=== PATIENT | male | born 1975 | race Caucasian/White ===

== ENCOUNTER 2016-10-20 19:41 | Inpatient (IN) | payer OTHER ==
[2016-10-20 20:40] VITALS: BMI 27.0
--- NOTE | 2016-10-20 20:48 | HP ---
COWS - Scale Resting Pulse: 0= [place] 80 or Below Sweatin=Flushed/Facial Moisture Restless Observation: 3= Extraneous Movement Pupil Size: 1= Pupils >than Normal Bone or Joint Aches: 1= Mild Discomfort Runny Nose/ Eye Tearin= Runny Nose/Eyes GI Upset > 30mins: 1= Stomach Cramp Tremor Observation: 1= Tremor [place], Not Seen Yawning Observation: 1= 1-2x During Session Anxiety or Irritability: 2=Irritable/Anxious Goose Flesh Skin: 0=Smooth Skin COWS Score: 14 CIWA Score - CIWA Score Nausea/Vomitin-Mild Nausea/No Vomiting Muscle Tremors: 3 Anxiety: 3 Agitation: 3 Paroxysmal Sweats: 1-Minimal Palms Moist Orientation: 1-Uncertain about Date Tacttile Disturbances: 0-None Auditory Disturbances: 2-Mild Harshness/Frighten Visual Disturbances: 2-Mild Sensitivity Headache: 0-None Present CIWA-Ar Total Score: 16 Admission ROS BHS - HPI Chief Complaint: WITHDRAWAL SYMPTOMS Allergies/Adverse Reactions: Allergies Allergy/AdvReac Type Severity Reaction Status Date / Time Seafood Allergy Severe Swelling Uncoded 10/20/16 20:40 History of Present Illness: 41 Y.O. MAN WITH AN EXTENSIVE HISTORY OF DRUG AND ALCOHOL DEPENDENCE IS SEEKING DETOX. THE HAS COMPLETED DETOX AND REHAB PREVIOUSLY AT ANOTHER FACILITY. HE STATES HE HAS HAD A PERIOD OF 4 YEARS OF SOBRIETY. Exam Limitations: No Limitations - Ebola screening Have you traveled outside of the country in the last 21 days: No (N) Have you had contact with anyone from an Ebola affected area: No Have you been sick,other than usual withdrawal symptoms: No Do you have a fever: No - Review of Systems Constitutional: Loss of Appetite, Changes in sleep, Unintentional Wgt. Loss EENT: reports: Blurred Vision, Double Vision, Tearing Respiratory: reports: No Symptoms reported Cardiac: reports: No Symptoms Reported GI: reports: Poor Appetite : reports: No Symptoms Reported Musculoskeletal: reports: No Symptoms Reported Integumentary: reports: No Symptoms Reported Neuro: reports: No Symptoms reported, Tremors Endocrine: reports: No Symptoms Reported Hematology: reports: No Symptoms Reported Psychiatric: reports: Anxious Other Systems: Reviewed and Negative Patient History - Patient Medical History Hx Anemia: No Hx Asthma: No Hx Chronic Obstructive Pulmonary Disease (COPD): No Hx Cancer: No Hx Cardiac Disorders: No Hx Congestive Heart Failure: No Hx Hypertension: No Hx Hypercholesterolemia: No Hx Pacemaker: No HX Cerebrovascular Accident: No Hx Seizures: No Hx Dementia: No Hx Diabetes: No Hx Gastrointestinal Disorders: No Hx Liver Disease: No Hx Genitourinary Disorders: No Hx Sexually Transmitted Disorders: No Hx Renal Disease (ESRD): No Hx Thyroid Disease: No Hx Human Immunodeficiency Virus (HIV): No Hx Hepatitis C: No Hx Depression: No Hx Suicide Attempt: No Hx Bipolar Disorder: No Hx Schizophrenia: No - Patient Surgical History Past Surgical History: No - PPD History Previous Implant?: No Results: NEEDS CXR PPD to be Administered?: No - Reproductive History Patient is a Female of Child Bearing Age (11 -55 yrs old): No - Smoking Cessation Smoking history: Current every day smoker Aproximately how many cigarettes per day: 10 Hx Chewing Tobacco Use: No Initiated information on smoking cessation: Yes 'Breaking Loose' booklet given: 10/20/16 - Substance & Tx. History Hx Alcohol Use: Yes Hx Substance Use: Yes Substance Use Type: Alcohol, Heroin Hx Substance Use Treatment: Yes (DETOX AND REHAB ) - Substances Abused Alcohol Route: Oral Frequency: Daily Amount used: beer- 2 six pack Age of first use: 17 Date of Last Use: 10/18/16 Heroin Route: Injection Frequency: Daily Amount used: 15 bags Age of first use: 24 Date of Last Use: 10/19/16 Family Disease History - Family Disease History Family History: Denies Admission Physical Exam BHS - Vital Signs Vital Signs: Vital Signs - 24 hr 10/20/16 20:27 Temperature 97.3 F L Pulse Rate 71 Respiratory 18 Rate Blood Pressure 111/74 - Physical General Appearance: Yes: No Apparent Distress, Tremorous, Irritable, Anxious HEENTM: Yes: Nasal Congestion Respiratory: Yes: Chest Non-Tender, Lungs Clear, Normal Breath Sounds, No Respiratory Distress, No Accessory Muscle Use Neck: Yes: No masses,lesions,Nodules, Trachea in good position Breast: Yes: Breast Exam Deferred Cardiology: Yes: Regular Rhythm, Regular Rate, S1, S2 Abdominal: Yes: Normal Bowel Sounds, Non Tender, Flat, Soft Genitourinary: Yes: Within Normal Limits Back: Yes: Normal Inspection Extremities: Yes: Normal Capillary Refill, Normal Inspection, Normal Range of Motion, Non-Tender, Tremors Neurological: Yes: Alert, Normal Mood/Affect, Normal Response Integumentary: Yes: Normal Color, Dry, Warm, Track Kimball Lymphatic: Yes: Within Normal Limits - Diagnostic (1) Alcohol dependence with uncomplicated withdrawal Current Visit: Yes Status: Chronic (2) Opioid dependence with withdrawal Current Visit: Yes Status: Chronic (3) History of treatment for tuberculosis Current Visit: Yes Status: Chronic Cleared for Admission [facility] - Detox or Rehab [facility] Level of Care: Medically Managed Detox Regimen/Protocol: Methadone/Librium [facility] Breath Alcohol Content Breath Alcohol Content: 0 Urine Drug Screen - Results Drug Screen Negative: No Urine Drug Screen Results: [place]-Cocaine, OPI-Opiates, MTD-Methadone, OXY- Oxycodone
[2016-10-20] MEDS ORDERED: MAGNESIUM HYDROX 2400MG/30ML ORAL SUSPENSION 30 ML CUP PO PRN (20:54)
[2016-10-20] MEDS ORDERED: ACETAMINOPHEN 325 MG TABLET (FP) PO PRN (20:54)
[2016-10-20] MEDS ORDERED: guaiFENesin/D-METHORPHAN HB 10 ML UNIT-DOSE CUPS PO PRN (20:54)
[2016-10-20] MEDS ORDERED: NICOTINE POLACRILEX 2 MG GUM BUC PRN (20:54)
[2016-10-20] MEDS ORDERED: MAG HYDROX/AL HYDROX/SIMETH 30 ML UNIT-DOSE CUP PO PRN (20:54)
[2016-10-20] MEDS ORDERED: MAGNESIUM CITRATE 300 ML BOTTLE PO PRN (20:54)
[2016-10-20] MEDS ORDERED: MENTHOL/PHENOL 1 EACH UD MM PRN (20:54)
[2016-10-20] MEDS ORDERED: chlordiazePOXIDE HCL 25 MG CAPSULE PO ONE (20:54)
[2016-10-20] MEDS ORDERED: LOPERAMIDE HCL 2 MG CAPSULE PO PRN (20:54)
[2016-10-20] MEDS ORDERED: P-EPHED 60MG/TRIPROLIDI 2.5MG TABLET PO PRN (20:54)
[2016-10-20] MEDS ORDERED: chlordiazePOXIDE HCL 25 MG CAPSULE PO PRN (20:54)
[2016-10-20] MEDS ORDERED: IBUPROFEN 400 MG TABLET (FP) PO PRN (20:54)
[2016-10-20] MEDS ORDERED: hydrOXYzine PAMOATE 50 MG CAPSULE (FP) PO PRN (20:54)
[2016-10-20] MEDS ORDERED: METHADONE HCL 10 MG TABLET (FOR DETOX USE ONLY) PO ONE ×2 (20:54→23:00)
[2016-10-20] MEDS ORDERED: METHADONE HCL 10 MG TABLET (FOR DETOX USE ONLY) ONE (23:13)
[2016-10-20] MEDS: THIAMINE HCL 100 MG TABLET (FP) PO SCH (23:14)
[2016-10-20] MEDS: chlordiazePOXIDE HCL 25 MG CAPSULE PO SCH (23:15)
[2016-10-21] MEDS: chlordiazePOXIDE HCL 25 MG CAPSULE PO SCH ×4 (06:20→22:42)
[2016-10-21] MEDS ORDERED: METHADONE HCL 10 MG TABLET (FOR DETOX USE ONLY) PO SCH (10:00)
[2016-10-21] MEDS: PRENATAL VITAMINS W/ FOLIC ACID TABLET (FP) PO SCH (10:25)
[2016-10-21] MEDS: NICOTINE 14 MG/24 HOURS TOPICAL PATCH TD SCH (10:26)
[2016-10-21 10:36] LABS: ALBUMIN 3.4 g/dl (3.4-5.0); ANION GAP 11 (8-16); CALCIUM 8.4 mg/dL (8.5-10.1); CO2 27 mmol/L (21-32); GLUCOSE,RANDOM 127 mg/dL (74-106)
[2016-10-21 10:37] LABS: MCH 29.5 pg (25.7-33.7); MCHC 33.9 g/dl (32.0-35.9); MEAN PLT VOLUME 7.8 fl (7.5-11.1); PLATELET COUNT 244 K/MM3 (134-434); RDW 13.2 % (11.9-15.9)
[2016-10-21 10:40] LABS: ALK PHOS 82 U/L (45-117); BILIRUBIN,TOTAL 0.4 mg/dL (0.2-1.0); SGOT/AST 11 U/L (15-37); SGPT/ALT 18 U/L (12-78); TOT PROT 6.1 g/dl (6.4-8.2)
--- NOTE | 2016-10-21 13:17 | PN ---
[facility] CIWA - CIWA Score Nausea/Vomitin-No Nausea/No Vomiting Muscle Tremors: 3 Anxiety: 4-Mod. Anxious/Guarded Agitation: 3 Paroxysmal Sweats: 3 Orientation: 0-Oriented Tacttile Disturbances: 0-None Auditory Disturbances: 0-None Visual Disturbances: 0-None Headache: 0-None Present CIWA-Ar Total Score: 13 BHS COWS - Scale Resting Pulse: 0= [place] 80 or Below Sweatin=Flushed/Facial Moisture Restless Observation: 1= Difficult to Sit Still Pupil Size: 0= Normal to Room Light Bone or Joint Aches: 2= Severe Diffuse Aches Runny Nose/ Eye Tearin= Runny Nose/Eyes GI Upset > 30mins: 2= Nausea/Diarrhea Tremor Observation of Outstretched Hands: 2= Slight Tremor Visible Yawning Observation: 1= 1-2x During Session Anxiety or Irritability: 2=Irritable/Anxious Goose Flesh Skin: 0=Smooth Skin COWS Score: 14 S Progress Note (SOAP) Subjective: anxiety,sweating,interrupted sleep,restless,nausea,muscle aches/spasm Objective: 10/21/16 13:16 Vital Signs - 8 hr 10/21/16 10/21/16 10/21/16 06:27 06:30 11:51 Temperature 96.9 F L 96.8 F L Pulse Rate 71 73 Respiratory 18 18 18 Rate Blood Pressure 120/73 147/92 Laboratory Tests 10/21/16 10/21/16 10/21/16 07:45 07:45 07:45 WBC 5.0 RBC 4.29 Hgb 12.6 Hct 37.3 MCV 87.0 MCHC 33.9 RDW 13.2 Plt Count 244 MPV 7.8 Sodium 142 Potassium 3.4 L Chloride 104 Carbon Dioxide 27 Anion Gap 11 BUN 12 Creatinine 1.0 Creat Clearance w eGFR > 60 Random Glucose 127 H Calcium 8.4 L Total Bilirubin 0.4 AST 11 L ALT 18 Alkaline Phosphatase 82 Total Protein 6.1 L Albumin 3.4 RPR Titer Nonreactive labs noted,k+ 3.4 Assessment: 10/21/16 13:16 withdrawal sx. Hypokalemia Plan: continue detox k-dur
[2016-10-21] MEDS: POTASSIUM CHLORIDE TABS 20 MEQ TABLET.ER (FP) PO SCH ×2 (13:42→22:41)
[2016-10-21] MEDS: THIAMINE HCL 100 MG TABLET (FP) PO SCH (22:41)
[2016-10-21] MEDS: diphenhydrAMINE HCL 50 MG CAPSULE PO PRN (22:42)
--- NOTE | 2016-10-22 00:47 | EKG ---
Test Reason : Blood Pressure : / mmHG Vent. Rate : 071 BPM Atrial Rate : 071 BPM P-R Int : 158 ms QRS Dur : 112 ms QT Int : 388 ms P-R-T Axes : 062 019 035 degrees QTc Int : 421 ms NORMAL SINUS RHYTHM NORMAL ECG NO PREVIOUS ECGS AVAILABLE Confirmed by JODY GRIGGS MD ([id number]) on 10/22/2016 12:47:11 AM Referred By: Confirmed By:JODY GRIGGS MD
[2016-10-22] MEDS: chlordiazePOXIDE HCL 25 MG CAPSULE PO SCH ×3 (05:26→17:41)
[2016-10-22] MEDS: POTASSIUM CHLORIDE TABS 20 MEQ TABLET.ER (FP) PO SCH ×2 (10:10→22:14)
[2016-10-22] MEDS: METHADONE HCL 5 MG TABLET (FOR DETOX USE ONLY) PO SCH (10:11)
[2016-10-22] MEDS: PRENATAL VITAMINS W/ FOLIC ACID TABLET (FP) PO SCH (10:11)
[2016-10-22] MEDS: NICOTINE 14 MG/24 HOURS TOPICAL PATCH TD SCH (10:11)
[2016-10-22 10:25] LABS: URINE APPEARANCE CLEAR; URINE BILIRUBIN NEGATIVE (NEGATIVE); URINE BLOOD NEGATIVE (NEGATIVE); URINE COLOR YELLOW; URINE GLUCOSE (UA) NEGATIVE (NEGATIVE); URINE KETONE NEGATIVE (NEGATIVE); URINE LEUK ESTERASE NEGATIVE (NEGATIVE); URINE NITRITE NEGATIVE (NEGATIVE); URINE PROTEIN NEGATIVE (NEGATIVE); URINE UROBILINOGEN NEGATIVE E.U./dl (0.2-1.0)
--- NOTE | 2016-10-22 11:54 | CONSULT ---
[facility] Psychiatric Consult - Data Date of interview: 10/22/16 Admission source: [facility] Identifying data: Mr Hooper is a 41 years old single male, father of a 23 years old son, unemployed, homeless seeking detox treatment for alcohol and heroin Substance Abuse History: - Smoking Cessation. Smoking history: Current every day smoker. Aproximately how many cigarettes per day: 10. Hx Chewing Tobacco Use: No. Initiated information on smoking cessation: Yes. 'Breaking Loose' booklet given: 10/20/16. - Substance & Tx. History. Hx Alcohol Use: Yes. Hx Substance Use: Yes. Substance Use Type: Alcohol, Heroin. Hx Substance Use Treatment: Yes (DETOX AND REHAB ). - Substances Abused. Alcohol. Route: Oral. Frequency: Daily. Amount used: beer- 2 six pack. Age of first use: 17. Date of Last Use: 10/18/16. Heroin. Route: Injection. Frequency: Daily. Amount used: 15 bags. Age of first use: 24. Date of Last Use: 10/19/16 Medical History: Unremarkable except prophylactic treatment for TB. Smokes 10 cigarettes daily Psychiatric History: Denies previous psychiatric contact. However, reports feeling depressed Mental Status Exam - Mental Status Exam Alert and Oriented to: Time, Place, Person Cognitive Function: Fair Patient Appearance: Well Groomed Mood: Depressed Affect: Blunted Patient Behavior: Cooperative Speech Pattern: Clear Voice Loudness: Normal Thought Process: Intact Thought Disorder: Not Present Hallucinations: Denies Suicidal Ideation: Denies Homicidal Ideation: Denies Insight/Judgement: Poor Sleep: Fair Appetite: Good Muscle strength/Tone: Normal Gait/Station: Normal Psychiatric Findings - Problem List ([place] 1, 2,3) (1) Substance induced mood disorder Current Visit: Yes Status: Acute (2) Alcohol dependence with uncomplicated withdrawal Current Visit: Yes Status: Chronic (3) Opioid dependence with withdrawal Current Visit: Yes Status: Chronic (4) Nicotine dependence Current Visit: Yes Status: Acute - Initial Treatment Plan Initial Treatment Plan: Continue inpatient detoxification
--- NOTE | 2016-10-22 16:25 | PN ---
S CIWA - CIWA Score Nausea/Vomitin Muscle Tremors: 3 Anxiety: 3 Agitation: 2 Paroxysmal Sweats: 3 Orientation: 0-Oriented Tacttile Disturbances: 2-Mild Itch/Numbness/Burn Auditory Disturbances: 1-Very Mild Visual Disturbances: 2-Mild Sensitivity Headache: 0-None Present CIWA-Ar Total Score: 18 BHS COWS - Scale Resting Pulse: 0= [place] 80 or Below Sweatin= Chills/Flushing Restless Observation: 1= Difficult to Sit Still Pupil Size: 0= Normal to Room Light Bone or Joint Aches: 2= Severe Diffuse Aches Runny Nose/ Eye Tearin= Nasal Congestion GI Upset > 30mins: 2= Nausea/Diarrhea Tremor Observation of Outstretched Hands: 2= Slight Tremor Visible Yawning Observation: 1= 1-2x During Session Anxiety or Irritability: 1=Feels Anxious/Irritable Goose Flesh Skin: 3=Piloerection COWS Score: 14 BHS Progress Note (SOAP) Subjective: Tremors, Lower Back Ache, Nausea, Sweating, Anxiety. Objective: PT. A & O X 3, OBSERVED AMBULATING ON UNIT. 10/22/16 16:24 Vital Signs Temperature 98.2 F 10/22/16 12:59 Pulse Rate 80 10/22/16 12:59 Respiratory Rate 18 10/22/16 12:59 Blood Pressure 125/81 10/22/16 12:59 O2 Sat by Pulse Oximetry (%) Laboratory Last Values WBC 5.0 K/mm3 (4.0-10.0) 10/21/16 07:45 RBC 4.29 M/mm3 (4.00-5.60) 10/21/16 07:45 Hgb 12.6 GM/dL (11.7-16.9) 10/21/16 07:45 Hct 37.3 % (35.4-49) 10/21/16 07:45 MCV 87.0 fl (80-96) 10/21/16 07:45 MCHC 33.9 g/dl (32.0-35.9) 10/21/16 07:45 RDW 13.2 % (11.9-15.9) 10/21/16 07:45 Plt Count 244 K/MM3 (134-434) 10/21/16 07:45 MPV 7.8 fl (7.5-11.1) 10/21/16 07:45 Sodium 142 mmol/L (136-145) 10/21/16 07:45 Potassium 3.4 mmol/L (3.5-5.1) L 10/21/16 07:45 Chloride 104 mmol/L (98-107) 10/21/16 07:45 Carbon Dioxide 27 mmol/L (21-32) 10/21/16 07:45 Anion Gap 11 (8-16) 10/21/16 07:45 BUN 12 mg/dL (7-18) 10/21/16 07:45 Creatinine 1.0 mg/dL (0.7-1.3) 10/21/16 07:45 Creat Clearance w eGFR > 60 (>60) 10/21/16 07:45 Random Glucose 127 mg/dL (74-106) H 10/21/16 07:45 Calcium 8.4 mg/dL (8.5-10.1) L 10/21/16 07:45 Total Bilirubin 0.4 mg/dL (0.2-1.0) 10/21/16 07:45 AST 11 U/L (15-37) L 10/21/16 07:45 ALT 18 U/L (12-78) 10/21/16 07:45 Alkaline Phosphatase 82 U/L (45-117) 10/21/16 07:45 Total Protein 6.1 g/dl (6.4-8.2) L 10/21/16 07:45 Albumin 3.4 g/dl (3.4-5.0) 10/21/16 07:45 Urine Color Yellow 10/22/16 07:00 Urine Appearance Clear 10/22/16 07:00 Urine pH 5.0 (5.0-8.0) 10/22/16 07:00 Ur Specific [place] 1.019 (1.001-1.035) 10/22/16 07:00 Urine Protein Negative (NEGATIVE) 10/22/16 07:00 Urine Glucose (UA) Negative (NEGATIVE) 10/22/16 07:00 Urine Ketones Negative (NEGATIVE) 10/22/16 07:00 Urine Blood Negative (NEGATIVE) 10/22/16 07:00 Urine Nitrite Negative (NEGATIVE) 10/22/16 07:00 Urine Bilirubin Negative (NEGATIVE) 10/22/16 07:00 Urine Urobilinogen Negative E.U./dl (0.2-1.0) 10/22/16 07:00 Ur Leukocyte Esterase Negative (NEGATIVE) 10/22/16 07:00 RPR Titer Nonreactive (NONREACTIVE) 10/21/16 07:45 LABS NOTED. 10/22/16 16:26 Assessment: 10/22/16 16:25 WITHDRAWAL SYMPTOMS. HYPOKALEMIA. Plan: CONTINUE DETOX.
[2016-10-22] MEDS: chlordiazePOXIDE 5 MG CAPSULE PO SCH (22:14)
[2016-10-22] MEDS: THIAMINE HCL 100 MG TABLET (FP) PO SCH (22:14)
[2016-10-22] MEDS: diphenhydrAMINE HCL 50 MG CAPSULE PO PRN (22:15)
[2016-10-23] MEDS: chlordiazePOXIDE 5 MG CAPSULE PO SCH ×3 (06:06→10:10)
[2016-10-23] MEDS: PRENATAL VITAMINS W/ FOLIC ACID TABLET (FP) PO SCH (10:09)
[2016-10-23] MEDS: POTASSIUM CHLORIDE TABS 20 MEQ TABLET.ER (FP) PO SCH (10:09)
[2016-10-23] MEDS: METHADONE HCL 5 MG TABLET (FOR DETOX USE ONLY) PO SCH (10:09)
[2016-10-23] MEDS: NICOTINE 14 MG/24 HOURS TOPICAL PATCH TD SCH (10:09)
--- NOTE | 2016-10-23 10:58 | PN ---
BHS Progress Note (SOAP) Subjective: ANXIETY,SWEAT/CHILLS,DECREASED APPETITE Objective: 10/23/16 10:58 Vital Signs Temperature 96.7 F L 10/23/16 06:41 Pulse Rate 68 10/23/16 06:41 Respiratory Rate 18 10/23/16 06:41 Blood Pressure 121/86 10/23/16 06:41 O2 Sat by Pulse Oximetry (%) Assessment: 10/23/16 10:58 WITHDRAWAL SX Plan: CONTINUE DETOX
[2016-10-23 11:07] VITALS: BP 111/78; PULSE 77; TEMP 97.7
--- NOTE | 2016-10-23 16:13 | DS ---
[facility] Detox Discharge Summary Admission Date: 10/20/16 Discharge Date: 10/23/16 - History Present History: Alcohol Dependence, Opioid Dependence Additional Comments: PT DECLINED TO CONTINUE WITH DETOX STATING PERSONAL REASONS. Pertinent Past History: DEPRESSION HX - Physical Exam Results Vital Signs: Vital Signs Temperature 97.7 F 10/23/16 11:06 Pulse Rate 77 10/23/16 11:06 Respiratory Rate 19 10/23/16 11:06 Blood Pressure 111/78 10/23/16 11:06 O2 Sat by Pulse Oximetry (%) Pertinent Admission Physical Exam Findings: WITHDRAWAL SX Laboratory Last Values WBC 5.0 K/mm3 (4.0-10.0) 10/21/16 07:45 RBC 4.29 M/mm3 (4.00-5.60) 10/21/16 07:45 Hgb 12.6 GM/dL (11.7-16.9) 10/21/16 07:45 Hct 37.3 % (35.4-49) 10/21/16 07:45 MCV 87.0 fl (80-96) 10/21/16 07:45 MCHC 33.9 g/dl (32.0-35.9) 10/21/16 07:45 RDW 13.2 % (11.9-15.9) 10/21/16 07:45 Plt Count 244 K/MM3 (134-434) 10/21/16 07:45 MPV 7.8 fl (7.5-11.1) 10/21/16 07:45 Sodium 142 mmol/L (136-145) 10/21/16 07:45 Potassium 3.4 mmol/L (3.5-5.1) L 10/21/16 07:45 Chloride 104 mmol/L (98-107) 10/21/16 07:45 Carbon Dioxide 27 mmol/L (21-32) 10/21/16 07:45 Anion Gap 11 (8-16) 10/21/16 07:45 BUN 12 mg/dL (7-18) 10/21/16 07:45 Creatinine 1.0 mg/dL (0.7-1.3) 10/21/16 07:45 Creat Clearance w eGFR > 60 (>60) 10/21/16 07:45 Random Glucose 127 mg/dL (74-106) H 10/21/16 07:45 Calcium 8.4 mg/dL (8.5-10.1) L 10/21/16 07:45 Total Bilirubin 0.4 mg/dL (0.2-1.0) 10/21/16 07:45 AST 11 U/L (15-37) L 10/21/16 07:45 ALT 18 U/L (12-78) 10/21/16 07:45 Alkaline Phosphatase 82 U/L (45-117) 10/21/16 07:45 Total Protein 6.1 g/dl (6.4-8.2) L 10/21/16 07:45 Albumin 3.4 g/dl (3.4-5.0) 10/21/16 07:45 Urine Color Yellow 10/22/16 07:00 Urine Appearance Clear 10/22/16 07:00 Urine pH 5.0 (5.0-8.0) 10/22/16 07:00 Ur Specific [place] 1.019 (1.001-1.035) 10/22/16 07:00 Urine Protein Negative (NEGATIVE) 10/22/16 07:00 Urine Glucose (UA) Negative (NEGATIVE) 10/22/16 07:00 Urine Ketones Negative (NEGATIVE) 10/22/16 07:00 Urine Blood Negative (NEGATIVE) 10/22/16 07:00 Urine Nitrite Negative (NEGATIVE) 10/22/16 07:00 Urine Bilirubin Negative (NEGATIVE) 10/22/16 07:00 Urine Urobilinogen Negative E.U./dl (0.2-1.0) 10/22/16 07:00 Ur Leukocyte Esterase Negative (NEGATIVE) 10/22/16 07:00 RPR Titer Nonreactive (NONREACTIVE) 10/21/16 07:45 - Treatment Hospital Course: Discharged Condition Good - Medication Discharge Medications: Ambulatory Orders NK [No Known Home Medication] 10/20/16 - Diagnosis (1) Nicotine dependence Status: Acute Qualifiers: Nicotine product type: cigarettes Substance use status: in withdrawal Qualified Code(s): F17.213 - Nicotine dependence, cigarettes, with withdrawal (2) Substance induced mood disorder Status: Acute (3) Alcohol dependence with uncomplicated withdrawal Status: Acute (4) History of treatment for tuberculosis Status: Chronic (5) Opioid dependence with withdrawal Status: Acute - AMA Did Patient Leave Against Medical Advice: Yes (AMA)
[2016-10-23] MEDS ORDERED: chlordiazePOXIDE HCL 10 MG CAPSULE PO SCH (23:00)
[2016-10-24] MEDS ORDERED: METHADONE HCL 10 MG TABLET (FOR DETOX USE ONLY) PO SCH (10:00)
[2016-10-25] MEDS ORDERED: METHADONE HCL 5 MG TABLET (FOR DETOX USE ONLY) PO SCH (06:00)
== END 2016-10-23 11:45 | disposition left against medical advice (07) | DRG 770 ==
LOC: YASAS 19:41 → Y3N 20:36
PROVIDERS: ADMIT Internal Medicine; ATTEND Internal Medicine
PROC: HZ2ZZZZ Detoxification Services for Substance Abuse Treatment (ICD-10-PCS; principal; 2016-10-20)
DX: F11.23 Opioid dependence with withdrawal (principal); F10.230 Alcohol dependence with withdrawal, uncomplicated; F17.210 Nicotine dependence, cigarettes, uncomplicated; F19.24 Other psychoactive substance dependence with psychoactive substance-induced mood disorder; E87.6 Hypokalemia; Z86.11 Personal history of tuberculosis; Z59.0 Homelessness
CPT/HCPCS: 36415; 80053; 81003; 85027; 86593; 93005; 93010

== ENCOUNTER 2016-12-08 12:20 | Inpatient (IN) | payer OTHER ==
[2016-12-08 14:53] VITALS: BMI 30.8
--- NOTE | 2016-12-08 16:22 | HP ---
COWS - Scale Resting Pulse: 0= [place] 80 or Below Sweatin=Flushed/Facial Moisture Restless Observation: 3= Extraneous Movement Pupil Size: 2= Moderately Dilated Bone or Joint Aches: 1= Mild Discomfort Runny Nose/ Eye Tearin= Runny Nose/Eyes GI Upset > 30mins: 2= Nausea/Diarrhea Tremor Observation: 2= Slight Tremor Visible Yawning Observation: 1= 1-2x During Session Anxiety or Irritability: 2=Irritable/Anxious Goose Flesh Skin: 0=Smooth Skin COWS Score: 17 Admission ROS S - HPI Chief Complaint: Withdrawal sx. Allergies/Adverse Reactions: Allergies Allergy/AdvReac Type Severity Reaction Status Date / Time fish derived Allergy Severe Swelling Verified 12/08/16 15:52 shellfish derived Allergy Severe Swelling Verified 12/08/16 15:52 No Known Drug Allergies Allergy Verified 12/08/16 15:52 Seafood Allergy Severe Swelling Uncoded 12/08/16 15:52 History of Present Illness: 41 y/o man with a long hx. of drug dependence is admitted for detox. Pt. has been in previous detox,he reports 2 yrs. drug free. Exam Limitations: No Limitations - Ebola screening Have you traveled outside of the country in the last 21 days: No Have you had contact with anyone from an Ebola affected area: No Have you been sick,other than usual withdrawal symptoms: No Do you have a fever: No - Review of Systems Constitutional: Diaphoresis EENT: reports: Nose Congestion Respiratory: reports: No Symptoms reported Cardiac: reports: No Symptoms Reported GI: reports: Nausea, Abdominal cramping : reports: No Symptoms Reported Musculoskeletal: reports: Back Pain Integumentary: reports: Sweating Neuro: reports: Tremors Endocrine: reports: No Symptoms Reported Hematology: reports: No Symptoms Reported Psychiatric: reports: No Sypmtoms Reported Other Systems: Reviewed and Negative Patient History - Patient Medical History Hx Anemia: No Hx Asthma: Yes (Albuterol) Hx Chronic Obstructive Pulmonary Disease (COPD): No Hx Cancer: No Hx Cardiac Disorders: No Hx Congestive Heart Failure: No Hx Hypertension: No Hx Hypercholesterolemia: No Hx Pacemaker: No HX Cerebrovascular Accident: No Hx Seizures: No Hx Dementia: No Hx Diabetes: No Hx Gastrointestinal Disorders: No Hx Liver Disease: No Hx Genitourinary Disorders: No Hx Sexually Transmitted Disorders: No Hx Renal Disease (ESRD): No Hx Thyroid Disease: No Hx Human Immunodeficiency Virus (HIV): No Hx Hepatitis C: No Hx Depression: Yes Hx Suicide Attempt: No Hx Bipolar Disorder: No Hx Schizophrenia: No - Patient Surgical History Past Surgical History: No Hx Neurologic Surgery: No Hx Cataract Extraction: No Hx Cardiac Surgery: No Hx Lung Surgery: No Hx Breast Surgery: No Hx Breast Biopsy: No Hx Abdominal Surgery: No Hx Appendectomy: No Hx Cholecystectomy: No Hx Genitourinary Surgery: No Hx Section: No Hx Orthopedic Surgery: No Anesthesia Reaction: No - PPD History Previous Implant?: Yes Documented Results: Positive w/proof Results: NEEDS CXR PPD to be Administered?: No - Smoking Cessation Smoking history: Current every day smoker Have you smoked in the past 12 months: Yes Aproximately how many cigarettes per day: 10 Hx Chewing Tobacco Use: No Initiated information on smoking cessation: Yes 'Breaking Loose' booklet given: 12/08/16 - Substance & Tx. History Hx Alcohol Use: No Hx Substance Use: Yes Substance Use Type: Heroin Hx Substance Use Treatment: Yes (Detox & Rehab) - Substances Abused Heroin Route: Injection Frequency: Daily Amount used: 10 bags Age of first use: 29 Date of Last Use: 12/07/16 Family Disease History - Family Disease History Family Disease History: Heart Disease: Mother (HTN) Admission Physical Exam BHS - Vital Signs Vital Signs: Vital Signs - 24 hr 12/08/16 14:46 Temperature 96.8 F L Pulse Rate 66 Respiratory 18 Rate Blood Pressure 125/80 - Physical General Appearance: Yes: Irritable, Sweating, Anxious HEENTM: Yes: Nasal Congestion, Rhinorrhea Respiratory: Yes: Chest Non-Tender, Lungs Clear, Normal Breath Sounds Neck: Yes: Supple Breast: Yes: Breast Exam Deferred Cardiology: Yes: Regular Rhythm, Regular Rate, S1, S2 Abdominal: Yes: Normal Bowel Sounds, Non Tender, Soft Genitourinary: Yes: Within Normal Limits Back: Yes: Within Normal Limits Musculoskeletal: Yes: Within Normal Limits Extremities: Yes: Tremors Neurological: Yes: Fully Oriented, Alert Integumentary: Yes: Track Kimball Lymphatic: Yes: Within Normal Limits - Diagnostic (1) Nicotine dependence Current Visit: Yes Status: Acute Qualifiers: Nicotine product type: cigarettes Substance use status: in withdrawal Qualified Code(s): F17.213 - Nicotine dependence, cigarettes, with withdrawal (2) Opioid dependence with withdrawal Current Visit: Yes Status: Acute Cleared for Admission [facility] - Detox or Rehab [facility] Level of Care: Medically Managed Detox Regimen/Protocol: Methadone [facility] Breath Alcohol Content Breath Alcohol Content: 0 Urine Drug Screen - Results Drug Screen Negative: No Urine Drug Screen Results: THC-Marijuana, OPI-Opiates, MTD-Methadone
[2016-12-08] MEDS ORDERED: MENTHOL/PHENOL 1 EACH UD MM PRN (16:27)
[2016-12-08] MEDS ORDERED: NICOTINE POLACRILEX 2 MG GUM BC PRN (16:27)
[2016-12-08] MEDS ORDERED: LOPERAMIDE HCL 2 MG CAPSULE PO PRN (16:27)
[2016-12-08] MEDS ORDERED: MAGNESIUM CITRATE 300 ML BOTTLE PO PRN (16:27)
[2016-12-08] MEDS ORDERED: ACETAMINOPHEN 325 MG TABLET (FP) PO PRN (16:27)
[2016-12-08] MEDS ORDERED: MAG HYDROX/AL HYDROX/SIMETH 30 ML UNIT-DOSE CUP PO PRN (16:27)
[2016-12-08] MEDS ORDERED: diphenhydrAMINE HCL 50 MG CAPSULE PO PRN (16:27)
[2016-12-08] MEDS ORDERED: METHADONE HCL 10 MG TABLET (FOR DETOX USE ONLY) PO ONE ×2 (16:27→23:00)
[2016-12-08] MEDS ORDERED: MAGNESIUM HYDROX 2400MG/30ML ORAL SUSPENSION 30 ML CUP PO PRN (16:27)
[2016-12-08] MEDS ORDERED: P-EPHED 60MG/TRIPROLIDI 2.5MG TABLET PO PRN (16:27)
[2016-12-08] MEDS ORDERED: IBUPROFEN 400 MG TABLET (FP) PO PRN (16:27)
[2016-12-08] MEDS ORDERED: guaiFENesin/D-METHORPHAN HB 10 ML UNIT-DOSE CUPS PO PRN (16:27)
[2016-12-08] MEDS ORDERED: hydrOXYzine PAMOATE 50 MG CAPSULE (FP) PO PRN (16:27)
[2016-12-08] MEDS ORDERED: ALBUTEROL SO4 6.7 GM HFA INHALER IH PRN (17:00)
[2016-12-08] MEDS: diazePAM 5 MG TABLET PO PRN (19:30)
[2016-12-08] MEDS: NICOTINE 21 MG/24 HOURS TOPICAL PATCH TD SCH (19:31)
[2016-12-08] MEDS ORDERED: THIAMINE HCL 100 MG TABLET (FP) PO SCH (22:00)
[2016-12-09] MEDS: diazePAM 5 MG TABLET PO PRN ×2 (05:42→10:28)
[2016-12-09 09:17] LABS: MCH 28.8 pg (25.7-33.7); MCHC 33.6 g/dl (32.0-35.9); MEAN CELL VOLUME 85.6 fl (80-96); MEAN PLT VOLUME 7.6 fl (7.5-11.1); PLATELET COUNT 242 K/MM3 (134-434); WHITE BLOOD COUNT 5.7 K/mm3 (4.0-10.0)
[2016-12-09 09:30] LABS: ALBUMIN 3.6 g/dl (3.4-5.0); ANION GAP 11 (8-16); CALCIUM 8.9 mg/dL (8.5-10.1); CO2 29 mmol/L (21-32); COCKROFT - GAULT 131.02; CREATININE 0.9 mg/dL (0.7-1.3); GLUCOSE,RANDOM 82 mg/dL (74-106); SGOT/AST 15 U/L (15-37); SGPT/ALT 33 U/L (12-78)
[2016-12-09 09:32] LABS: ALK PHOS 90 U/L (45-117); BILIRUBIN,TOTAL 0.9 mg/dL (0.2-1.0)
[2016-12-09] MEDS ORDERED: PRENATAL VITAMINS W/ FOLIC ACID TABLET (FP) PO SCH (10:00)
[2016-12-09] MEDS ORDERED: METHADONE HCL 10 MG TABLET (FOR DETOX USE ONLY) PO ONE (10:00)
[2016-12-09] MEDS: NICOTINE 21 MG/24 HOURS TOPICAL PATCH TD SCH (10:28)
--- NOTE | 2016-12-09 12:21 | PN ---
BHS COWS - Scale Resting Pulse: 0= [place] 80 or Below Sweatin=Flushed/Facial Moisture Restless Observation: 1= Difficult to Sit Still Pupil Size: 0= Normal to Room Light Bone or Joint Aches: 1= Mild Discomfort Runny Nose/ Eye Tearin= Runny Nose/Eyes GI Upset > 30mins: 2= Nausea/Diarrhea Tremor Observation of Outstretched Hands: 2= Slight Tremor Visible Yawning Observation: 1= 1-2x During Session Anxiety or Irritability: 2=Irritable/Anxious Goose Flesh Skin: 0=Smooth Skin COWS Score: 13 BHS Progress Note (SOAP) Subjective: Anxiety,sweating,interrupted sleep,restless,tremors. Objective: 12/09/16 12:20 Vital Signs - 8 hr 12/09/16 12/09/16 06:45 09:31 Temperature 97.8 F 97.9 F Pulse Rate 71 80 Respiratory 18 20 Rate Blood Pressure 132/91 129/90 Laboratory Tests 12/09/16 12/09/16 12/09/16 07:30 07:30 07:30 WBC 5.7 RBC 4.71 Hgb 13.6 Hct 40.4 MCV 85.6 MCHC 33.6 RDW 13.0 Plt Count 242 MPV 7.6 Sodium 139 Potassium 3.8 Chloride 99 Carbon Dioxide 29 Anion Gap 11 BUN 6 L D Creatinine 0.9 Creat Clearance w eGFR > 60 Random Glucose 82 D Calcium 8.9 Total Bilirubin 0.9 D AST 15 D ALT 33 D Alkaline Phosphatase 90 Total Protein 7.0 Albumin 3.6 RPR Titer Nonreactive labs noted Assessment: 12/09/16 12:20 Withdrawal sx. Plan: Continue detox
[2016-12-09 13:55] VITALS: BP 135/89; PULSE 86; TEMP 97
[2016-12-09] MEDS ORDERED: cloNIDine HCL 0.1 MG TABLET PO SCH (14:00)
--- NOTE | 2016-12-09 17:17 | EKG ---
Test Reason : Blood Pressure : / mmHG Vent. Rate : 062 BPM Atrial Rate : 062 BPM P-R Int : 160 ms QRS Dur : 094 ms QT Int : 426 ms P-R-T Axes : 033 029 047 degrees QTc Int : 432 ms NORMAL SINUS RHYTHM NORMAL ECG WHEN COMPARED WITH ECG OF 20-OCT-2016 22:02, NO SIGNIFICANT CHANGE WAS FOUND Confirmed by BLANCA PIERSON MD ([id number]) on 12/09/2016 5:17:17 PM Referred By: Confirmed By:BLANCA PIERSON MD
[2016-12-10] MEDS ORDERED: METHADONE HCL 5 MG TABLET (FOR DETOX USE ONLY) PO ONE (10:00)
[2016-12-11] MEDS ORDERED: METHADONE HCL 5 MG TABLET (FOR DETOX USE ONLY) PO ONE (10:00)
[2016-12-12] MEDS ORDERED: METHADONE HCL 10 MG TABLET (FOR DETOX USE ONLY) PO ONE (10:00)
[2016-12-13] MEDS ORDERED: METHADONE HCL 5 MG TABLET (FOR DETOX USE ONLY) PO ONE (06:00)
--- NOTE | 2016-12-13 12:12 | DS ---
[facility] Detox Discharge Summary Admission Date: 12/08/16 Discharge Date: 12/09/16 - History Present History: Alcohol Dependence, Opioid Dependence Pertinent Past History: PPD+ - Physical Exam Results Vital Signs: Vital Signs Temperature 97.0 F L 12/09/16 13:54 Pulse Rate 86 12/09/16 13:54 Respiratory Rate 18 12/09/16 13:54 Blood Pressure 135/89 12/09/16 13:54 O2 Sat by Pulse Oximetry (%) Pertinent Admission Physical Exam Findings: Withdrawal sx. Laboratory Last Values WBC 5.7 K/mm3 (4.0-10.0) 12/09/16 07:30 RBC 4.71 M/mm3 (4.00-5.60) 12/09/16 07:30 Hgb 13.6 GM/dL (11.7-16.9) 12/09/16 07:30 Hct 40.4 % (35.4-49) 12/09/16 07:30 MCV 85.6 fl (80-96) 12/09/16 07:30 MCHC 33.6 g/dl (32.0-35.9) 12/09/16 07:30 RDW 13.0 % (11.9-15.9) 12/09/16 07:30 Plt Count 242 K/MM3 (134-434) 12/09/16 07:30 MPV 7.6 fl (7.5-11.1) 12/09/16 07:30 Sodium 139 mmol/L (136-145) 12/09/16 07:30 Potassium 3.8 mmol/L (3.5-5.1) 12/09/16 07:30 Chloride 99 mmol/L (98-107) 12/09/16 07:30 Carbon Dioxide 29 mmol/L (21-32) 12/09/16 07:30 Anion Gap 11 (8-16) 12/09/16 07:30 BUN 6 mg/dL (7-18) L D 12/09/16 07:30 Creatinine 0.9 mg/dL (0.7-1.3) 12/09/16 07:30 Creat Clearance w eGFR > 60 (>60) 12/09/16 07:30 Random Glucose 82 mg/dL (74-106) D 12/09/16 07:30 Calcium 8.9 mg/dL (8.5-10.1) 12/09/16 07:30 Total Bilirubin 0.9 mg/dL (0.2-1.0) D 12/09/16 07:30 AST 15 U/L (15-37) D 12/09/16 07:30 ALT 33 U/L (12-78) D 12/09/16 07:30 Alkaline Phosphatase 90 U/L (45-117) 12/09/16 07:30 Total Protein 7.0 g/dl (6.4-8.2) 12/09/16 07:30 Albumin 3.6 g/dl (3.4-5.0) 12/09/16 07:30 RPR Titer Nonreactive (NONREACTIVE) 12/09/16 07:30 labs noted - Treatment Patient has Accepted a Rehab Referral to: [facility] - Medication Discharge Medications: Ambulatory Orders NK [No Known Home Medication] 10/20/16 - Diagnosis (1) Nicotine dependence Status: Acute Qualifiers: Nicotine product type: cigarettes Substance use status: in withdrawal Qualified Code(s): F17.213 - Nicotine dependence, cigarettes, with withdrawal (2) Opioid dependence with withdrawal Status: Acute - AMA Did Patient Leave Against Medical Advice: Yes
== END 2016-12-09 14:00 | disposition left against medical advice (07) | DRG 770 ==
LOC: YASAS 12:20 → Y3N 15:53
PROVIDERS: ADMIT Internal Medicine; ATTEND Internal Medicine
DX: F11.23 Opioid dependence with withdrawal (principal); F17.213 Nicotine dependence, cigarettes, with withdrawal; Z59.0 Homelessness
CPT/HCPCS: 36415; 80053; 85027; 86593; 93005; 93010

== ENCOUNTER 2017-06-22 13:26 | Inpatient (IN) | payer OTHER ==
[2017-06-22 14:18] VITALS: BMI 31.3
--- NOTE | 2017-06-22 14:34 | HP ---
COWS - Scale Resting Pulse: 0= [place] 80 or Below Sweatin= Chills/Flushing Restless Observation: 0= Sits Still Pupil Size: 0= Normal to Room Light Bone or Joint Aches: 1= Mild Discomfort Runny Nose/ Eye Tearin= Nasal Congestion GI Upset > 30mins: 1= Stomach Cramp Tremor Observation: 2= Slight Tremor Visible Yawning Observation: 1= 1-2x During Session Anxiety or Irritability: 1=Feels Anxious/Irritable Goose Flesh Skin: 0=Smooth Skin COWS Score: 8 Admission ROS BHS - HPI Chief Complaint: I'm here for me this time, I have hope I can get clean Allergies/Adverse Reactions: Allergies Allergy/AdvReac Type Severity Reaction Status Date / Time fish derived Allergy Severe Swelling Verified 12/08/16 15:52 shellfish derived Allergy Severe Swelling Verified 12/08/16 15:52 No Known Drug Allergies Allergy Verified 12/08/16 15:52 Seafood Allergy Severe Swelling Uncoded 12/08/16 15:52 History of Present Illness: 42 yo gentleman here for detox from opiates - one of several admissions. No seizures, states never been on methadone program or suboxone. Exam Limitations: Clinical Condition - Ebola screening Have you traveled outside of the country in the last 21 days: No Have you had contact with anyone from an Ebola affected area: No Have you been sick,other than usual withdrawal symptoms: No Do you have a fever: No - Review of Systems Constitutional: Loss of Appetite, Malaise, Changes in sleep, Weakness EENT: reports: Nose Congestion Respiratory: reports: No Symptoms reported Cardiac: reports: No Symptoms Reported GI: reports: Nausea, Poor Appetite, Indigestion : reports: Dysuria Musculoskeletal: reports: Back Pain, Muscle Pain Integumentary: reports: No Symptoms Reported Neuro: reports: Headache Endocrine: reports: No Symptoms Reported Hematology: reports: No Symptoms Reported Psychiatric: reports: Judgement Intact, Mood/Affect Appropiate, Anxious Other Systems: Reviewed and Negative Patient History - Patient Medical History Hx Anemia: No Hx Asthma: No Hx Chronic Obstructive Pulmonary Disease (COPD): No Hx Cancer: No Hx Cardiac Disorders: No Hx Congestive Heart Failure: No Hx Hypertension: No Hx Hypercholesterolemia: No Hx Pacemaker: No HX Cerebrovascular Accident: No Hx Seizures: No Hx Dementia: No Hx Diabetes: No Hx Gastrointestinal Disorders: No Hx Liver Disease: No Hx Genitourinary Disorders: No Hx Sexually Transmitted Disorders: No Hx Renal Disease (ESRD): No Hx Thyroid Disease: No Hx Human Immunodeficiency Virus (HIV): No Hx Hepatitis C: No Hx Depression: Yes (never hospitalized) Hx Suicide Attempt: No Hx Bipolar Disorder: No Hx Schizophrenia: No - Patient Surgical History Past Surgical History: No Hx Neurologic Surgery: No Hx Cataract Extraction: No Hx Cardiac Surgery: No Hx Lung Surgery: No Hx Breast Surgery: No Hx Breast Biopsy: No Hx Abdominal Surgery: No Hx Appendectomy: No Hx Cholecystectomy: No Hx Genitourinary Surgery: No Hx Section: No Hx Orthopedic Surgery: No Anesthesia Reaction: No - PPD History Previous Implant?: Yes Documented Results: Positive w/o proof (took medication x 9 months) Results: NEEDS CXR PPD to be Administered?: No - Reproductive History Patient is a Female of Child Bearing Age (11 -55 yrs old): No (male) - Smoking Cessation Smoking history: Current every day smoker Have you smoked in the past 12 months: Yes Aproximately how many cigarettes per day: 10 Hx Chewing Tobacco Use: No Initiated information on smoking cessation: Yes 'Breaking Loose' booklet given: 06/22/17 (give on floor) - Substance & Tx. History Hx Alcohol Use: No Hx Substance Use: Yes Substance Use Type: Heroin, Marijuana, Opiates, Tranquilizers Hx Substance Use Treatment: Yes (detox, rehab) - Substances Abused percocet Route: Oral Frequency: 1-2 times per week Amount used: three 10mg pills Age of first use: 35 Date of Last Use: 06/21/17 Heroin Route: Injection Frequency: Daily Amount used: 15 bags Age of first use: 18 Date of Last Use: 06/22/17 Marijuana/Hashish Route: Smoking Frequency: 1-2 times per week Amount used: 1 blunt Age of first use: 15 Date of Last Use: 06/19/17 Alprazolam (Xanax) Route: Oral Frequency: Daily Amount used: two 4mg sticks Age of first use: 36 Date of Last Use: 06/17/17 Family Disease History - Family Disease History Family Disease History: Other: Father (living), Mother (living), Brother (one - living - healthy), Son (healthy) Admission Physical Exam BHS - Vital Signs Vital Signs: Vital Signs - 24 hr 06/22/17 14:15 Temperature 97.3 F L Pulse Rate 76 Respiratory 20 Rate Blood Pressure 126/84 - Physical General Appearance: Yes: Nourished, Appropriately Dressed, Moderate Distress, Anxious HEENTM: Yes: Hearing grossly Normal, Normocephalic, Normal Voice, Pharynx Normal Respiratory: Yes: Normal Breath Sounds, No Respiratory Distress Neck: Yes: No masses,lesions,Nodules, Supple Breast: Yes: Breast Exam Deferred Cardiology: Yes: Regular Rhythm, Regular Rate Abdominal: Yes: Soft Genitourinary: Yes: Dysuria Back: Yes: Normal Inspection Musculoskeletal: Yes: full range of Motion, Gait Steady Extremities: Yes: Normal Inspection, Non-Tender Neurological: Yes: Fully Oriented, Alert, Normal Mood/Affect, Normal Response Integumentary: Yes: Normal Color, Warm, Track Kimball (both hands - mild swelling but no palpable abscess or redness) Lymphatic: Yes: Within Normal Limits - Diagnostic (1) Opioid dependence with withdrawal Current Visit: Yes Status: Chronic (2) PPD positive, treated Current Visit: Yes Status: Chronic (3) Nicotine dependence Current Visit: Yes Status: Chronic Qualifiers: Nicotine product type: cigarettes Substance use status: in withdrawal Qualified Code(s): F17.213 - Nicotine dependence, cigarettes, with withdrawal; F17.213 - Nicotine dependence, cigarettes, with withdrawal Cleared for Admission [facility] - Detox or Rehab [facility] Level of Care: Medically Managed Detox Regimen/Protocol: Methadone [facility] Breath Alcohol Content Breath Alcohol Content: 0 Urine Drug Screen - Results Drug Screen Negative: No Urine Drug Screen Results: THC-Marijuana, [place]-Cocaine, OPI-Opiates, BZO- Benzodiazepines, OXY-Oxycodone
[2017-06-22] MEDS ORDERED: MAGNESIUM CITRATE 300 ML BOTTLE PO PRN (14:43)
[2017-06-22] MEDS ORDERED: IBUPROFEN 400 MG TABLET (FP) PO PRN (14:43)
[2017-06-22] MEDS ORDERED: MENTHOL/PHENOL 1 EACH UD MM PRN (14:43)
[2017-06-22] MEDS ORDERED: MAG HYDROX/AL HYDROX/SIMETH 30 ML UNIT-DOSE CUP PO PRN (14:43)
[2017-06-22] MEDS ORDERED: diazePAM 5 MG TABLET PO ONE (14:43)
[2017-06-22] MEDS ORDERED: P-EPHED 60MG/TRIPROLIDI 2.5MG TABLET PO PRN (14:43)
[2017-06-22] MEDS ORDERED: MAGNESIUM HYDROX 2400MG/30ML ORAL SUSPENSION 30 ML CUP PO PRN (14:43)
[2017-06-22] MEDS ORDERED: guaiFENesin/D-METHORPHAN HB 10 ML UNIT-DOSE CUPS PO PRN (14:43)
[2017-06-22] MEDS ORDERED: diphenhydrAMINE HCL 50 MG CAPSULE PO PRN (14:43)
[2017-06-22] MEDS ORDERED: ACETAMINOPHEN 325 MG TABLET (FP) PO PRN (14:43)
[2017-06-22] MEDS ORDERED: diazePAM 5 MG TABLET PO PRN (14:43)
[2017-06-22] MEDS ORDERED: LOPERAMIDE HCL 2 MG CAPSULE PO PRN (14:43)
[2017-06-22] MEDS ORDERED: METHADONE HCL 10 MG TABLET (FOR DETOX USE ONLY) PO ONE ×2 (16:45→23:00)
[2017-06-22] MEDS ORDERED: METHADONE HCL 10 MG TABLET (FOR DETOX USE ONLY) ONE (18:45)
[2017-06-22] MEDS: NICOTINE 21 MG/24 HOURS TOPICAL PATCH TD SCH (18:49)
[2017-06-22] MEDS ORDERED: THIAMINE HCL 100 MG TABLET (FP) PO SCH (22:00)
[2017-06-22] MEDS: diazePAM 5 MG TABLET PO SCH (22:18)
[2017-06-22 23:03] LABS: URINE APPEARANCE SLCLOUDY; URINE BILIRUBIN NEGATIVE (NEGATIVE); URINE BLOOD NEGATIVE (NEGATIVE); URINE COLOR DKYELLOW; URINE GLUCOSE (UA) NEGATIVE (NEGATIVE); URINE KETONE NEGATIVE (NEGATIVE); URINE NITRITE NEGATIVE (NEGATIVE); URINE PROTEIN NEGATIVE (NEGATIVE)
[2017-06-23] MEDS: diazePAM 5 MG TABLET PO SCH ×2 (06:50→14:51)
[2017-06-23 09:49] LABS: MCH 28.6 pg (25.7-33.7); MCHC 33.3 g/dl (32.0-35.9); MEAN CELL VOLUME 85.9 fl (80-96); MEAN PLT VOLUME 7.5 fl (7.5-11.1); PLATELET COUNT 244 K/MM3 (134-434); RDW 14.2 % (11.9-15.9); WHITE BLOOD COUNT 5.4 K/mm3 (4.0-10.0)
[2017-06-23 10:00] LABS: ALBUMIN 3.4 g/dl (3.4-5.0); ALK PHOS 74 U/L (45-117); BILIRUBIN,TOTAL 1.2 mg/dL (0.2-1.0); CALCIUM 8.6 mg/dL (8.5-10.1); CO2 26 mmol/L (21-32); CREATININE 0.9 mg/dL (0.7-1.3); GLUCOSE,RANDOM 96 mg/dL (74-106); SGOT/AST 21 U/L (15-37); SGPT/ALT 45 U/L (12-78); TOT PROT 6.7 g/dl (6.4-8.2)
[2017-06-23] MEDS ORDERED: PRENATAL VITAMINS W/ FOLIC ACID TABLET (FP) PO SCH (10:00)
[2017-06-23] MEDS ORDERED: METHADONE HCL 10 MG TABLET (FOR DETOX USE ONLY) PO SCH (10:00)
[2017-06-23 10:02] LABS: ANION GAP 9 (8-16)
[2017-06-23] MEDS: NICOTINE 21 MG/24 HOURS TOPICAL PATCH TD SCH (10:16)
--- NOTE | 2017-06-23 11:01 | EKG ---
Test Reason : Blood Pressure : / mmHG Vent. Rate : 066 BPM Atrial Rate : 066 BPM P-R Int : 154 ms QRS Dur : 096 ms QT Int : 408 ms P-R-T Axes : 049 029 029 degrees QTc Int : 427 ms NORMAL SINUS RHYTHM NORMAL ECG WHEN COMPARED WITH ECG OF 08-DEC-2016 16:22, NO SIGNIFICANT CHANGE WAS FOUND Confirmed by ANGIE JAIMES MD ([id number]) on 06/23/2017 11:01:40 AM Referred By: Confirmed By:ANGIE JAIMES MD
[2017-06-23] MEDS ORDERED: FLU VACCINE QUAD 60 MCG/0.5 ML (MDV 17-18) IM ONE (12:00)
--- NOTE | 2017-06-23 13:03 | PN ---
[facility] Progress Note Note: Patient was approached twice for interview. He was found in bed sleeping both times. 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
[2017-06-23 13:46] LABS: URINE LEUK ESTERASE Negative (NEGATIVE)
--- NOTE | 2017-06-23 14:46 | PN ---
[facility] CIWA - CIWA Score Nausea/Vomitin-No Nausea/No Vomiting Muscle Tremors: 3 Anxiety: 4-Mod. Anxious/Guarded Agitation: 3 Paroxysmal Sweats: 3 Orientation: 0-Oriented Tacttile Disturbances: 0-None Auditory Disturbances: 0-None Visual Disturbances: 0-None Headache: 0-None Present CIWA-Ar Total Score: 13 BHS COWS - Scale Resting Pulse: 0= [place] 80 or Below Sweatin=Flushed/Facial Moisture Restless Observation: 1= Difficult to Sit Still Pupil Size: 0= Normal to Room Light Bone or Joint Aches: 2= Severe Diffuse Aches Runny Nose/ Eye Tearin= Runny Nose/Eyes GI Upset > 30mins: 2= Nausea/Diarrhea Tremor Observation of Outstretched Hands: 2= Slight Tremor Visible Yawning Observation: 1= 1-2x During Session Anxiety or Irritability: 2=Irritable/Anxious Goose Flesh Skin: 0=Smooth Skin COWS Score: 14 S Progress Note (SOAP) Subjective: Anxiety,tremors,sweating,interrupted sleep,restless. Objective: 06/23/17 14:45 Vital Signs - 8 hr 06/23/17 10:00 Temperature 97.2 F L Pulse Rate 65 Respiratory 16 Rate Blood Pressure 122/89 Laboratory Tests 06/22/17 06/23/17 06/23/17 22:45 07:30 07:30 WBC 5.4 RBC 4.53 Hgb 13.0 Hct 39.0 MCV 85.9 MCH 28.6 MCHC 33.3 RDW 14.2 Plt Count 244 MPV 7.5 Sodium 139 Potassium 3.9 Chloride 104 Carbon Dioxide 26 Anion Gap 9 BUN 10 D Creatinine 0.9 Creat Clearance w eGFR > 60 Random Glucose 96 Calcium 8.6 Total Bilirubin 1.2 H D AST 21 D ALT 45 D Alkaline Phosphatase 74 Total Protein 6.7 Albumin 3.4 Urine Color Dkyellow Urine Appearance Slcloudy Urine pH 6.0 Ur Specific [place] 1.020 Urine Protein Negative Urine Glucose (UA) Negative Urine Ketones Negative Urine Blood Negative Urine Nitrite Negative Urine Bilirubin Negative Urine Urobilinogen 2.0 Ur Leukocyte Esterase Negative RPR Titer 06/23/17 07:30 WBC RBC Hgb Hct MCV MCH MCHC RDW Plt Count MPV Sodium Potassium Chloride Carbon Dioxide Anion Gap BUN Creatinine Creat Clearance w eGFR Random Glucose Calcium Total Bilirubin AST ALT Alkaline Phosphatase Total Protein Albumin Urine Color Urine Appearance Urine pH Ur Specific [place] Urine Protein Urine Glucose (UA) Urine Ketones Urine Blood Urine Nitrite Urine Bilirubin Urine Urobilinogen Ur Leukocyte Esterase RPR Titer Nonreactive labs noted Assessment: 06/23/17 14:45 Withdrawal sx. Plan: Continue detox
[2017-06-23 18:19] VITALS: BP 121/77; PULSE 61; TEMP 98.2
[2017-06-24] MEDS ORDERED: METHADONE HCL 5 MG TABLET (FOR DETOX USE ONLY) PO SCH (10:00)
[2017-06-24] MEDS ORDERED: diazePAM 5 MG TABLET PO SCH (10:00)
[2017-06-26] MEDS ORDERED: METHADONE HCL 10 MG TABLET (FOR DETOX USE ONLY) PO SCH (10:00)
[2017-06-26] MEDS ORDERED: diazePAM 5 MG TABLET PO SCH (10:00)
[2017-06-27] MEDS ORDERED: METHADONE HCL 5 MG TABLET (FOR DETOX USE ONLY) PO SCH (06:00)
== END 2017-06-23 17:45 | disposition left against medical advice (07) | DRG 770 ==
LOC: YASAS 13:26 → Y6N 15:33
PROVIDERS: ADMIT Internal Medicine; ATTEND Internal Medicine
PROC: HZ2ZZZZ Detoxification Services for Substance Abuse Treatment (ICD-10-PCS; principal; 2017-06-22)
DX: F11.23 Opioid dependence with withdrawal (principal); F13.20 Sedative, hypnotic or anxiolytic dependence, uncomplicated; F12.20 Cannabis dependence, uncomplicated; F17.210 Nicotine dependence, cigarettes, uncomplicated; R76.11 Nonspecific reaction to tuberculin skin test without active tuberculosis; Z91.013 Allergy to seafood; Z59.0 Homelessness
CPT/HCPCS: 36415; 80053; 81003; 85027; 86593; 93005; 93010

== ENCOUNTER 2018-01-06 12:31 | Inpatient (IN) | payer OTHER ==
[2018-01-06 13:38] VITALS: BMI 33.9
[2018-01-06] MEDS ORDERED: NICOTINE POLACRILEX 2 MG GUM BC PRN (15:50)
[2018-01-06] MEDS ORDERED: MENTHOL/PHENOL 1 EACH UD MM PRN (15:50)
[2018-01-06] MEDS ORDERED: MAG HYDROX/AL HYDROX/SIMETH 30 ML UNIT-DOSE CUP PO PRN (15:50)
[2018-01-06] MEDS ORDERED: P-EPHED 60MG/TRIPROLIDI 2.5MG TABLET PO PRN (15:50)
[2018-01-06] MEDS ORDERED: MAGNESIUM CITRATE 300 ML BOTTLE PO PRN (15:50)
[2018-01-06] MEDS ORDERED: LOPERAMIDE HCL 2 MG CAPSULE PO PRN (15:50)
[2018-01-06] MEDS ORDERED: MAGNESIUM HYDROX 2400MG/30ML ORAL SUSPENSION 30 ML CUP PO PRN (15:50)
[2018-01-06] MEDS ORDERED: ACETAMINOPHEN 325 MG TABLET (FP) PO PRN (15:50)
[2018-01-06] MEDS ORDERED: guaiFENesin/D-METHORPHAN HB 10 ML UNIT-DOSE CUPS PO PRN (15:50)
[2018-01-06] MEDS ORDERED: IBUPROFEN 400 MG TABLET (FP) PO PRN (15:50)
--- NOTE | 2018-01-06 15:50 | HP ---
COWS - Scale Resting Pulse: 0= [place] 80 or Below Sweatin= Chills/Flushing Restless Observation: 1= Difficult to Sit Still Pupil Size: 1= Pupils >than Normal Bone or Joint Aches: 2= Severe Diffuse Aches Runny Nose/ Eye Tearin= Nasal Congestion GI Upset > 30mins: 2= Nausea/Diarrhea Tremor Observation: 2= Slight Tremor Visible Yawning Observation: 2= >3x During Session Anxiety or Irritability: 2=Irritable/Anxious Goose Flesh Skin: 0=Smooth Skin COWS Score: 14 Admission ROS S - HPI Chief Complaint: withdrawal sx opioid Allergies/Adverse Reactions: Allergies Allergy/AdvReac Type Severity Reaction Status Date / Time fish derived Allergy Severe Swelling Verified 06/22/17 17:53 shellfish derived Allergy Severe Swelling Verified 06/22/17 17:53 No Known Drug Allergies Allergy Verified 06/22/17 17:53 Seafood Allergy Severe Swelling Uncoded 06/22/17 17:53 History of Present Illness: 42 years old male with long history of opioid nicotine dependence has positive ppd and depression is admitted to detox Exam Limitations: No Limitations - Ebola screening Have you traveled outside of the country in the last 21 days: No Have you had contact with anyone from an Ebola affected area: No Have you been sick,other than usual withdrawal symptoms: No Do you have a fever: No - Review of Systems Constitutional: Changes in sleep, Weight Stable EENT: reports: No Symptoms Reported Respiratory: reports: No Symptoms reported Cardiac: reports: No Symptoms Reported GI: reports: Nausea, Poor Fluid Intake, Abdominal cramping : reports: No Symptoms Reported Musculoskeletal: reports: Back Pain, Joint Pain, Muscle Pain, Neck Pain Integumentary: reports: Change in Color (left arm and right hand) Neuro: reports: Tremors Endocrine: reports: No Symptoms Reported Hematology: reports: No Symptoms Reported Psychiatric: reports: Judgement Intact, Orientated x3, Anxious, Depressed Other Systems: Reviewed and Negative Patient History - Patient Medical History Hx Anemia: No Hx Asthma: No Hx Chronic Obstructive Pulmonary Disease (COPD): No Hx Cancer: No Hx Cardiac Disorders: No Hx Congestive Heart Failure: No Hx Hypertension: No Hx Hypercholesterolemia: No Hx Pacemaker: No HX Cerebrovascular Accident: No Hx Seizures: No Hx Dementia: No Hx Diabetes: No Hx Gastrointestinal Disorders: No Hx Liver Disease: No Hx Genitourinary Disorders: No Hx Sexually Transmitted Disorders: No Hx Renal Disease (ESRD): No Hx Thyroid Disease: No Hx Human Immunodeficiency Virus (HIV): No Hx Hepatitis C: No Hx Depression: Yes (never hospitalized) Hx Suicide Attempt: No Hx Bipolar Disorder: No Hx Schizophrenia: No - Patient Surgical History Past Surgical History: No Hx Neurologic Surgery: No Hx Cataract Extraction: No Hx Cardiac Surgery: No Hx Lung Surgery: No Hx Breast Surgery: No Hx Breast Biopsy: No Hx Abdominal Surgery: No Hx Appendectomy: No Hx Cholecystectomy: No Hx Genitourinary Surgery: No Hx Orthopedic Surgery: No - PPD History Previous Implant?: Yes Documented Results: Positive w/proof Implanted On Prior [facility] Admission?: No Results: NEEDS CXR PPD to be Administered?: No - Smoking Cessation Smoking history: Current every day smoker Have you smoked in the past 12 months: Yes Aproximately how many cigarettes per day: 10 Cigars Per Day: 0 Hx Chewing Tobacco Use: No Initiated information on smoking cessation: Yes 'Breaking Loose' booklet given: 01/06/18 - Substance & Tx. History Hx Alcohol Use: No Hx Substance Use: Yes Substance Use Type: Marijuana, Opiates Hx Substance Use Treatment: Yes (06/2017 [facility] - Substances Abused Heroin Route: Injection Frequency: Daily Amount used: 25 bags Age of first use: 27 Date of Last Use: 01/06/18 Family Disease History - Family Disease History Family Disease History: Other: Father (living), Mother (living), Brother (one - living - healthy), Son (healthy) Admission Physical Exam BHS - Vital Signs Vital Signs: Vital Signs - 24 hr 01/06/18 13:37 Temperature 98.9 F Pulse Rate 68 Respiratory 18 Rate Blood Pressure 156/99 - Physical General Appearance: Yes: Appropriately Dressed, Mild Distress, Obese, Tremorous , Irritable, Sweating, Anxious HEENTM: Yes: Hearing grossly Normal, Normocephalic, Normal Voice Respiratory: Yes: Chest Non-Tender, Lungs Clear, Normal Breath Sounds, No Respiratory Distress, No Accessory Muscle Use Neck: Yes: Supple, Trachea in good position Breast: Yes: Breasts Symetrical, No Discharge Cardiology: Yes: Regular Rhythm, S1, S2, Bradycardia Abdominal: Yes: Normal Bowel Sounds, Non Tender, Flat Genitourinary: Yes: Within Normal Limits Back: Yes: Normal Inspection Musculoskeletal: Yes: full range of Motion, Gait Steady, Back pain, Muscle Pain Extremities: Yes: Normal Inspection (left inner elbow iv heroin), Normal Range of Motion, Non-Tender, Tremors Neurological: Yes: Fully Oriented, Alert, Motor Strength 5/5, Normal Response, Depressed Affect Integumentary: Yes: Warm, Track Kimball Lymphatic: Yes: Within Normal Limits - Diagnostic (1) Substance induced mood disorder Current Visit: Yes Status: Suspected (2) Nicotine dependence Current Visit: Yes Status: Acute Qualifiers: Nicotine product type: cigarettes Substance use status: in withdrawal Qualified Code(s): F17.213 - Nicotine dependence, cigarettes, with withdrawal (3) Opioid dependence with withdrawal Current Visit: Yes Status: Acute (4) PPD positive, treated Current Visit: Yes Status: Resolved Cleared for Admission [facility] - Detox or Rehab [facility] Level of Care: Medically Managed Detox Regimen/Protocol: Methadone [facility] Breath Alcohol Content Breath Alcohol Content: 0 Urine Drug Screen - Results Drug Screen Negative: No Urine Drug Screen Results: THC-Marijuana, OPI-Opiates
[2018-01-06] MEDS ORDERED: METHADONE HCL 10 MG TABLET (FOR DETOX USE ONLY) PO ONE ×3 (16:15→23:00)
[2018-01-06] MEDS: diazePAM 5 MG TABLET PO PRN (19:31)
[2018-01-06] MEDS: NICOTINE 14 MG/24 HOURS TOPICAL PATCH TD SCH (19:33)
[2018-01-06] MEDS ORDERED: THIAMINE HCL 100 MG TABLET (FP) PO SCH (22:00)
[2018-01-06] MEDS ORDERED: MELATONIN 5 MG TABLETS PO PRN (22:00)
[2018-01-06 23:14] LABS: URINE APPEARANCE CLEAR; URINE BILIRUBIN NEGATIVE (<2.0 mg/dL); URINE COLOR YELLOW; URINE GLUCOSE (UA) NEGATIVE (NEGATIVE); URINE KETONE NEGATIVE (NEGATIVE); URINE LEUK ESTERASE NEGATIVE (NEGATIVE); URINE NITRITE NEGATIVE (NEGATIVE); URINE PROTEIN NEGATIVE (NEGATIVE)
--- NOTE | 2018-01-07 09:52 | EKG ---
Test Reason : Blood Pressure : / mmHG Vent. Rate : 066 BPM Atrial Rate : 066 BPM P-R Int : 166 ms QRS Dur : 094 ms QT Int : 394 ms P-R-T Axes : 035 022 025 degrees QTc Int : 413 ms NORMAL SINUS RHYTHM NORMAL ECG WHEN COMPARED WITH ECG OF 22-JUN-2017 17:51, NO SIGNIFICANT CHANGE WAS FOUND Confirmed by MD Escamilla Edward ([id number]) on 01/07/2018 9:52:00 AM Referred By: Confirmed By:Geraldo Escamilla MD
[2018-01-07 09:53] LABS: HEMOGLOBIN 14.5 GM/dL (11.7-16.9); MCH 30.5 pg (25.7-33.7); MCHC 34.6 g/dl (32.0-35.9); MEAN CELL VOLUME 88.1 fl (80-96); MEAN PLT VOLUME 8.2 fl (7.5-11.1); PLATELET COUNT 247 K/MM3 (134-434); RBC 4.76 M/mm3 (4.00-5.60); RDW 14.9 % (11.9-15.9); WHITE BLOOD COUNT 4.9 K/mm3 (4.0-10.0)
[2018-01-07] MEDS ORDERED: PRENATAL VITAMINS W/ FOLIC ACID TABLET (FP) PO SCH (10:00)
[2018-01-07] MEDS ORDERED: METHADONE HCL 10 MG TABLET (FOR DETOX USE ONLY) PO ONE (10:00)
[2018-01-07 10:07] LABS: CHLORIDE 103 mmol/L (98-107); POTASSIUM 3.9 mmol/L (3.5-5.1); SODIUM 140 mmol/L (136-145)
[2018-01-07] MEDS: diazePAM 5 MG TABLET PO PRN ×3 (10:08→18:49)
[2018-01-07] MEDS: NICOTINE 14 MG/24 HOURS TOPICAL PATCH TD SCH (10:08)
[2018-01-07 11:06] LABS: ALBUMIN 3.9 g/dl (3.4-5.0); ALK PHOS 109 U/L (45-117); ANION GAP 9 (8-16); BILIRUBIN,TOTAL 0.6 mg/dL (0.2-1.0); BLOOD UREA NITROGEN 10 mg/dL (7-18); CALCIUM 8.9 mg/dL (8.5-10.1); CO2 28 mmol/L (21-32); CREATININE 0.9 mg/dL (0.7-1.3); GLUCOSE,RANDOM 91 mg/dL (74-106); SGOT/AST 30 U/L (15-37); SGPT/ALT 49 U/L (12-78); TOT PROT 8.1 g/dl (6.4-8.2)
--- NOTE | 2018-01-07 11:52 | PN ---
BHS COWS - Scale Resting Pulse: 0= [place] 80 or Below Sweatin= No chills or Flushing Restless Observation: 1= Difficult to Sit Still Pupil Size: 0= Normal to Room Light Bone or Joint Aches: 2= Severe Diffuse Aches Runny Nose/ Eye Tearin= Runny Nose/Eyes GI Upset > 30mins: 1= Stomach Cramp Tremor Observation of Outstretched Hands: 0= None Yawning Observation: 1= 1-2x During Session Anxiety or Irritability: 2=Irritable/Anxious Goose Flesh Skin: 3=Piloerection COWS Score: 12 BHS Progress Note (SOAP) Subjective: Anxious, Stomach Cramping, Fatigue, Body Aches. Objective: PATIENT A & O X 3. NO ACUTE DISTRESS. 01/07/18 11:51 Vital Signs Temperature 97.6 F 01/07/18 10:04 Pulse Rate 65 01/07/18 10:04 Respiratory Rate 18 01/07/18 10:04 Blood Pressure 120/72 01/07/18 10:04 O2 Sat by Pulse Oximetry (%) Laboratory Tests 01/06/18 01/07/18 01/07/18 18:17 06:00 06:00 WBC 4.9 RBC 4.76 Hgb 14.5 D Hct 42.0 MCV 88.1 MCH 30.5 MCHC 34.6 RDW 14.9 Plt Count 247 MPV 8.2 Sodium 140 Potassium 3.9 Chloride 103 Carbon Dioxide 28 Anion Gap 9 BUN 10 Creatinine 0.9 Creat Clearance w eGFR > 60 Random Glucose 91 Calcium 8.9 Total Bilirubin 0.6 D AST 30 D ALT 49 Alkaline Phosphatase 109 D Total Protein 8.1 D Albumin 3.9 Urine Color Yellow Urine Appearance Clear Urine pH 6.0 Ur Specific [place] 1.025 Urine Protein Negative Urine Glucose (UA) Negative Urine Ketones Negative Urine Blood Negative Urine Nitrite Negative Urine Bilirubin Negative Urine Urobilinogen 2.0 Ur Leukocyte Esterase Negative LABS NOTED. RPR RESULT PENDING. 01/07/18 11:52 Assessment: 01/07/18 11:51 WITHDRAWAL SYMPTOMS. Plan: CONTINUE DETOX.
[2018-01-07 13:31] VITALS: PULSE 74
--- NOTE | 2018-01-07 17:26 | CONSULT ---
[facility] Psychiatric Consult - Data Date of interview: 01/07/18 Admission source: [facility] Identifying data: Patient REFUSED psychiatric interview.Nursing staff is made aware.
[2018-01-07 17:27] VITALS: BP 116/71; TEMP 98
--- NOTE | 2018-01-07 19:39 | DS ---
[facility] Detox Discharge Summary Admission Date: 01/06/18 - History Present History: Opioid Dependence Additional Comments: Patient in no apparent distress. Denies suicidal / homicidal ideation . Patient insist on leaving today, although it advise for him to stay and continue to treatment. The patient verbalizes he understands the risks and complications that may result from the refusal of medical care which may include and permanent disability and has the mental capacity to make such decision. Patient advised to seek medical care at local ER , PCP or urgent care if symptoms worsen. Pertinent Past History: Vital Signs Temperature 98.0 F 01/07/18 17:27 Pulse Rate 74 01/07/18 17:27 Respiratory Rate 18 01/07/18 17:27 Blood Pressure 116/71 01/07/18 17:27 O2 Sat by Pulse Oximetry (%) Laboratory Last Values WBC 4.9 K/mm3 (4.0-10.0) 01/07/18 06:00 RBC 4.76 M/mm3 (4.00-5.60) 01/07/18 06:00 Hgb 14.5 GM/dL (11.7-16.9) D 01/07/18 06:00 Hct 42.0 % (35.4-49) 01/07/18 06:00 MCV 88.1 fl (80-96) 01/07/18 06:00 MCH 30.5 pg (25.7-33.7) 01/07/18 06:00 MCHC 34.6 g/dl (32.0-35.9) 01/07/18 06:00 RDW 14.9 % (11.9-15.9) 01/07/18 06:00 Plt Count 247 K/MM3 (134-434) 01/07/18 06:00 MPV 8.2 fl (7.5-11.1) 01/07/18 06:00 Sodium 140 mmol/L (136-145) 01/07/18 06:00 Potassium 3.9 mmol/L (3.5-5.1) 01/07/18 06:00 Chloride 103 mmol/L (98-107) 01/07/18 06:00 Carbon Dioxide 28 mmol/L (21-32) 01/07/18 06:00 Anion Gap 9 (8-16) 01/07/18 06:00 BUN 10 mg/dL (7-18) 01/07/18 06:00 Creatinine 0.9 mg/dL (0.7-1.3) 01/07/18 06:00 Creat Clearance w eGFR > 60 (>60) 01/07/18 06:00 Random Glucose 91 mg/dL (74-106) 01/07/18 06:00 Calcium 8.9 mg/dL (8.5-10.1) 01/07/18 06:00 Total Bilirubin 0.6 mg/dL (0.2-1.0) D 01/07/18 06:00 AST 30 U/L (15-37) D 01/07/18 06:00 ALT 49 U/L (12-78) 01/07/18 06:00 Alkaline Phosphatase 109 U/L (45-117) D 01/07/18 06:00 Total Protein 8.1 g/dl (6.4-8.2) D 01/07/18 06:00 Albumin 3.9 g/dl (3.4-5.0) 01/07/18 06:00 Urine Color Yellow 01/06/18 18:17 Urine Appearance Clear 01/06/18 18:17 Urine pH 6.0 (5.0-8.0) 01/06/18 18:17 Ur Specific [place] 1.025 (1.001-1.035) 01/06/18 18:17 Urine Protein Negative (NEGATIVE) 01/06/18 18:17 Urine Glucose (UA) Negative (NEGATIVE) 01/06/18 18:17 Urine Ketones Negative (NEGATIVE) 01/06/18 18:17 Urine Blood Negative (NEGATIVE) 01/06/18 18:17 Urine Nitrite Negative (NEGATIVE) 01/06/18 18:17 Urine Bilirubin Negative (<2.0 mg/dL) 01/06/18 18:17 Urine Urobilinogen 2.0 mg/dL (0.2-1.0) 01/06/18 18:17 Ur Leukocyte Esterase Negative (NEGATIVE) 01/06/18 18:17 RPR Titer Nonreactive (NONREACTIVE) 01/07/18 06:00 - Physical Exam Results Vital Signs: Vital Signs Temperature 98.0 F 01/07/18 17:27 Pulse Rate 74 01/07/18 17:27 Respiratory Rate 18 01/07/18 17:27 Blood Pressure 116/71 01/07/18 17:27 O2 Sat by Pulse Oximetry (%) - Medication Discharge Medications: Ambulatory Orders NK [No Known Home Medication] 10/20/16 - Diagnosis (1) Nicotine dependence Current Visit: Yes Status: Acute Qualifiers: Nicotine product type: cigarettes Substance use status: in withdrawal Qualified Code(s): F17.213 - Nicotine dependence, cigarettes, with withdrawal (2) Opioid dependence with withdrawal Current Visit: Yes Status: Acute (3) PPD positive, treated Current Visit: Yes Status: Resolved - AMA Did Patient Leave Against Medical Advice: Yes
--- NOTE | 2018-01-07 19:47 | PN ---
[facility] Progress Note Note: Patient insist on leaving today. Patient reports he's not getting enough methadone to manage his opioid use, reports currently injects 6 bags of heroin four times a day. Patient highly encourage to stay and advise withdrawal symptoms will be manage. Patient continue to insist on leaving. Patient educate on the risk of not completing treatment. Advise if symptoms worsen to seek medical attention. Patient verbalize understanding.
[2018-01-08] MEDS ORDERED: METHADONE HCL 5 MG TABLET (FOR DETOX USE ONLY) PO ONE (10:00)
[2018-01-09] MEDS ORDERED: METHADONE HCL 5 MG TABLET (FOR DETOX USE ONLY) PO ONE (10:00)
[2018-01-10] MEDS ORDERED: METHADONE HCL 10 MG TABLET (FOR DETOX USE ONLY) PO ONE (10:00)
[2018-01-11] MEDS ORDERED: METHADONE HCL 5 MG TABLET (FOR DETOX USE ONLY) PO ONE (06:00)
== END 2018-01-07 19:38 | disposition left against medical advice (07) | DRG 770 ==
LOC: YASAS 12:31 → Y3N 18:07
PROVIDERS: ADMIT Internal Medicine; ATTEND Internal Medicine
PROC: HZ2ZZZZ Detoxification Services for Substance Abuse Treatment (ICD-10-PCS; principal; 2018-01-06)
DX: F11.23 Opioid dependence with withdrawal (principal); F17.213 Nicotine dependence, cigarettes, with withdrawal; F19.24 Other psychoactive substance dependence with psychoactive substance-induced mood disorder; R76.11 Nonspecific reaction to tuberculin skin test without active tuberculosis; R00.1 Bradycardia, unspecified; Z91.013 Allergy to seafood; Z59.0 Homelessness
CPT/HCPCS: 36415; 80053; 81003; 85027; 86593; 93005; 93010